=== PATIENT | male | born 1995 | race Caucasian/White ===

== ENCOUNTER 2018-06-28 16:59 | Emergency (ER) | payer BC, OTHER ==
[2018-06-28 17:03] VITALS: BP 137/84
[2018-06-28] MEDS ORDERED: OMEP-125 PO (17:06)
[2018-06-28] MEDS ORDERED: ACETAMINOPHEN 500 MG TAB PO ONE (17:10)
--- NOTE | 2018-06-28 17:16 | ER Report ---
History and Physical Time Seen By MD: 17:13 Hx. of Stated Complaint: FEVER ON AND OFF FOR A COUPLE WEEKS, BEEN 103 TODAY AT HOME. HAS ABDOMINAL AND TESTICULAR PAIN. (AMINAH CATRER MD) HPI/ROS CHIEF COMPLAINT: Fever testicular pain HISTORY OF PRESENT ILLNESS: Patient is a 23-year-old male says he's had intermittent fevers for the last 3-4 days MAXIMUM TEMPERATURE today is 103 is also describing increased urination as well as testicular pain and tenderness no penile discharge no pain with urination or defecation she took [id number] antipyretics with little benefit no neck pain or nuchal rigidity no headache no nausea vomiting no fever chills no additional complaints noted REVIEW OF SYSTEMS: Respiratory: No cough, no dyspnea. Cardiovascular: No chest pain, no palpitations. Gastrointestinal: No vomiting, no abdominal pain. Musculoskeletal: No back pain. Remainder of the 14 system rev: Yes (AMINAH CARTER MD) Allergies: Coded Allergies: No Known Drug Allergies (Unverified , 06/28/18) Home Meds Active Scripts Hydrocodone Bit/Acetaminophen (NORCO 5-325 TABLET) 1 Each Tablet, 1 EACH PO Q4H PRN for PAIN, #12 TAB Prov:NITIN PRESTON DO 06/28/18 Doxycycline Hyclate (DOXYCYCLINE HYCLATE) 100 Mg Tablet, 100 MG PO BID for infection, #20 Prov:NITIN PRESTON DO 06/28/18 Reported Medications Omeprazole (OMEPRAZOLE) 20 Mg Capsule.dr, 1 CAP PO BID, CAP 06/28/18 Reviewed Nurses Notes: Yes Old Medical Records Reviewed: Yes (AMINAH CARTER MD) Hx Substance Use Disorder: No Hx Alcohol Use: No (AMINAH CARTER MD) Constitutional (NITIN PRESTON DO) Physical Exam General Appearance: [The patient is alert, has no immediate need for airway protection and no current signs of toxicity.] [ ] Eyes: Pupils equal and round no injection. Respiratory: Chest is non tender, lungs are clear to auscultation. Cardiac: regular rate and rhythm [ ] Gastrointestinal: Abdomen is soft and non tender, no masses, bowel sounds normal. Musculoskeletal: Neck: Neck is supple and non tender. Extremities have full range of motion and are non tender. Skin: No rashes or lesions. Testicular examination shows some red warm and erythematous bilateral testicle pain with elevation negative friend sign no penile discharge no lymphadenopathy noted DIFFERENTIAL DIAGNOSIS: After history and physical exam differential diagnosis was considered for orchitis epididymitis testicular torsion UTI (AMINAH CARTER MD) Medical Decision Making Data Points Laboratory Hematology Test 06/28/18 17:11 06/28/18 17:17 Red Blood Count 5.60 M/uL (4.00-5.60) Mean Corpuscular Volume 83.0 fL (80.0-96.0) Mean Corpuscular Hemoglobin 28.9 pg (26.0-33.0) Mean Corpuscular Hemoglobin Concent 34.8 g/dL (32.0-36.0) Red Cell Distribution Width 12.9 % (11.5-14.5) Mean Platelet Volume 7.1 fL (7.2-11.1) Neutrophils (%) (Auto) 76.0 % (39.4-72.5) Lymphocytes (%) (Auto) 14.7 % (17.6-49.6) Monocytes (%) (Auto) 8.1 % (4.1-12.4) Eosinophils (%) (Auto) 0.8 % (0.4-6.7) Basophils (%) (Auto) 0.4 % (0.3-1.4) Nucleated RBC Relative Count (auto) 0.0 /100WBC Neutrophils # (Auto) 10.4 K/uL (2.0-7.4) Lymphocytes # (Auto) 2.0 K/uL (1.3-3.6) Monocytes # (Auto) 1.1 K/uL (0.3-1.0) Eosinophils # (Auto) 0.1 K/uL (0.0-0.5) Basophils # (Auto) 0.1 K/uL (0.0-0.1) Nucleated RBC Absolute Count (auto) 0.00 K/uL Sodium Level 141 mmol/L (137-145) Potassium Level 3.5 mmol/L (3.5-5.0) Chloride Level 102 mmol/L (98-107) Carbon Dioxide Level 25 mmol/L (22-30) Blood Urea Nitrogen 16 mg/dl (9-21) Creatinine 1.20 mg/dl (0.66-1.25) Glomerular Filtration Rate Calc > 60.0 Random Glucose 117 mg/dl (75-110) Calcium Level 10.0 mg/dl (8.4-10.2) Total Bilirubin 0.5 mg/dl (0.2-1.3) Aspartate Amino Transf (AST/SGOT) 23 U/L (0-35) Alanine Aminotransferase (ALT/SGPT) 40 U/L (0-56) Alkaline Phosphatase 78 U/L (0-126) Total Protein 8.8 g/dl (6.3-8.2) Albumin 4.8 g/dl (3.5-5.0) Urine Color Yellow Urine Clarity Clear Urine pH 5.0 pH (4.8-9.5) Urine Specific [place] 1.023 Urine Protein Negative mg/dL (NEGATIVE) Urine Glucose (UA) Negative mg/dL (NEGATIVE) Urine Ketones Negative mg/dL (NEGATIVE) Urine Blood Negative (NEGATIVE) Urine Nitrite Negative (NEGATIVE) Urine Bilirubin Negative (NEGATIVE) Urine Urobilinogen 2.0 mg/dL (0.2-1.9) Urine Leukocyte Esterase Negative (NEGATIVE) Urine RBC <1 /HPF (0-2/HPF) Urine WBC <1 /HPF (0-5/HPF) Urine Squamous Epithelial Cells None /LPF (</=FEW) Urine Bacteria Negative /HPF (NONE-FEW) Urine Mucus Few /HPF (NONE-FEW) Chlamydia trachomatis Amplified DNA Negative (Negative) Neisseria gonorrhoeae Amplified DNA Negative (Negative) Body Source Urine Chemistry Test 06/28/18 17:11 06/28/18 17:17 White Blood Count 13.7 k/uL (4.5-11.0) Red Blood Count 5.60 M/uL (4.00-5.60) Hemoglobin 16.2 g/dL (14.0-18.0) Hematocrit 46.5 % (42.0-52.0) Mean Corpuscular Volume 83.0 fL (80.0-96.0) Mean Corpuscular Hemoglobin 28.9 pg (26.0-33.0) Mean Corpuscular Hemoglobin Concent 34.8 g/dL (32.0-36.0) Red Cell Distribution Width 12.9 % (11.5-14.5) Platelet Count 376 K/uL (150-450) Mean Platelet Volume 7.1 fL (7.2-11.1) Neutrophils (%) (Auto) 76.0 % (39.4-72.5) Lymphocytes (%) (Auto) 14.7 % (17.6-49.6) Monocytes (%) (Auto) 8.1 % (4.1-12.4) Eosinophils (%) (Auto) 0.8 % (0.4-6.7) Basophils (%) (Auto) 0.4 % (0.3-1.4) Nucleated RBC Relative Count (auto) 0.0 /100WBC Neutrophils # (Auto) 10.4 K/uL (2.0-7.4) Lymphocytes # (Auto) 2.0 K/uL (1.3-3.6) Monocytes # (Auto) 1.1 K/uL (0.3-1.0) Eosinophils # (Auto) 0.1 K/uL (0.0-0.5) Basophils # (Auto) 0.1 K/uL (0.0-0.1) Nucleated RBC Absolute Count (auto) 0.00 K/uL Glomerular Filtration Rate Calc > 60.0 Calcium Level 10.0 mg/dl (8.4-10.2) Total Bilirubin 0.5 mg/dl (0.2-1.3) Aspartate Amino Transf (AST/SGOT) 23 U/L (0-35) Alanine Aminotransferase (ALT/SGPT) 40 U/L (0-56) Alkaline Phosphatase 78 U/L (0-126) Total Protein 8.8 g/dl (6.3-8.2) Albumin 4.8 g/dl (3.5-5.0) Urine Color Yellow Urine Clarity Clear Urine pH 5.0 pH (4.8-9.5) Urine Specific [place] 1.023 Urine Protein Negative mg/dL (NEGATIVE) Urine Glucose (UA) Negative mg/dL (NEGATIVE) Urine Ketones Negative mg/dL (NEGATIVE) Urine Blood Negative (NEGATIVE) Urine Nitrite Negative (NEGATIVE) Urine Bilirubin Negative (NEGATIVE) Urine Urobilinogen 2.0 mg/dL (0.2-1.9) Urine Leukocyte Esterase Negative (NEGATIVE) Urine RBC <1 /HPF (0-2/HPF) Urine WBC <1 /HPF (0-5/HPF) Urine Squamous Epithelial Cells None /LPF (</=FEW) Urine Bacteria Negative /HPF (NONE-FEW) Urine Mucus Few /HPF (NONE-FEW) Chlamydia trachomatis Amplified DNA Negative (Negative) Neisseria gonorrhoeae Amplified DNA Negative (Negative) Body Source Urine Urinalysis Test 06/28/18 17:17 Urine Color Yellow Urine Clarity Clear Urine pH 5.0 pH (4.8-9.5) Urine Specific [place] 1.023 Urine Protein Negative mg/dL (NEGATIVE) Urine Glucose (UA) Negative mg/dL (NEGATIVE) Urine Ketones Negative mg/dL (NEGATIVE) Urine Blood Negative (NEGATIVE) Urine Nitrite Negative (NEGATIVE) Urine Bilirubin Negative (NEGATIVE) Urine Urobilinogen 2.0 mg/dL (0.2-1.9) Urine Leukocyte Esterase Negative (NEGATIVE) Urine RBC <1 /HPF (0-2/HPF) Urine WBC <1 /HPF (0-5/HPF) Urine Squamous Epithelial Cells None /LPF (</=FEW) Urine Bacteria Negative /HPF (NONE-FEW) Urine Mucus Few /HPF (NONE-FEW) (NITIN PRESTON DO) EKG/Imaging Imaging Results: Ultrasound of the is jugular ultrasound was obtained was obtained. The results of the study are SCROTAL ULTRASOUND INDICATION: Testicular pain. Fever. COMPARISON: None available. FINDINGS: Right testicle measures 5.0 x 3.0 x 3.8 cm in cc, AP, and transverse dimensions respectively. There is normal arterial and venous blood flow. However diffusely increased. No right hydrocele. No varicocele identified. The right epididymal head measures 1.4 cm. Increased blood flow. No focal normality. Left testicle measures 5.5 x 2.5 x 4.4 cm in cc, AP, and transverse dimensions respectively. There is normal arterial and venous blood flow. However diffusely increased. No evidence of hydrocele. No varicocele identified. The left epididymal head measures 1.3 cm. Increased blood flow. No focal normality. The bilateral testicles appear diffusely heterogeneous. In echogenicity. IMPRESSION: 1. Both testes show diffuse heterogeneity without a focal abnormality. However there is diffusely increased blood flow seen bilaterally with increased blood flow in both epididymides without focal abnormality. This would be consistent bilateral epididymal orchitis. However suggest follow-up exam after medical therapy to reevaluate and to assess for any underlying abnormality not visualized or obscured by the blood flow and heterogeneity. The study was read by the radiologist. I viewed the images myself on the PACS system. (NITIN PRESTON DO) ED Course/Re-evaluation ED Course Care was assumed at shift change with diagnostic ultrasound pending to rule out testicular torsion. Patient clinically with epididymitis and orchitis. Ultrasound was unremarkable for torsion. Patient be treated with doxycycline and hydrocodone for pain. He is also advised to take ibuprofen [id number] milligrams 3 times daily. Follow-up with urology if unimproved in 3-5 days. Decision to Disposition Date: Jun 28, 2018 Decision to Disposition Time: 18:29 (NITIN PRESTON DO) Depart Departure Latest Vital Signs (NITIN PRESTON DO) Impression: Primary Impression: Orchitis and epididymitis Condition: Improved Disposition: HOME OR SELF-CARE New Scripts Hydrocodone Bit/Acetaminophen (NORCO 5-325 TABLET) 1 Each Tablet 1 EACH PO Q4H PRN for PAIN, #12 TAB Prov: NITIN PRESTON DO 06/28/18 Doxycycline Hyclate (DOXYCYCLINE HYCLATE) 100 Mg Tablet 100 MG PO BID for infection, #20 Prov: NITIN PRESTON DO 06/28/18 Patient Instructions: Epididymitis (ED), Orchitis (ED) Additional Instructions: Take ibuprofen 200 mg 3-4 tablets 3 times a day with food Perform warm sitz bath apply heating pad to your genital area Follow-up with urology in 10-14 days at the [facility] AMINAH CARTER MD Jun 28, 2018 17:16 NITIN PRESTON DO Jun 28, 2018 18:31
[2018-06-28 17:20] LABS: PLATELET COUNT, AUTOMATED 376 K/uL (150-450)
--- NOTE | 2018-06-28 18:25 | RADIOLOGY IMAGING REPORT ---
FACILITY: [facility] - [place] PATIENT NAME: Petar Grier : 1995 MR: [id number] V: [id number] EXAM DATE: ORDERING PHYSICIAN: AMINAH CARTER TECHNOLOGIST: Location: [facility] Patient: Petar Grier : 1995 Visit/Account:[id number] Date of Sevice: 06/28/2018 SCROTAL ULTRASOUND INDICATION: Testicular pain. Fever. COMPARISON: None available. FINDINGS: Right testicle measures 5.0 x 3.0 x 3.8 cm in cc, AP, and transverse dimensions respectively. There is normal arterial and venous blood flow. However diffusely increased. No right hydrocele. No varicocele identified. The right epididymal head measures 1.4 cm. Increased blood flow. No focal normality. Left testicle measures 5.5 x 2.5 x 4.4 cm in cc, AP, and transverse dimensions respectively. There is normal arterial and venous blood flow. However diffusely increased. No evidence of hydrocele. No varicocele identified. The left epididymal head measures 1.3 cm. Increased blood flow. No focal normality. The bilateral testicles appear diffusely heterogeneous. In echogenicity. IMPRESSION: 1. Both testes show diffuse heterogeneity without a focal abnormality. However there is diffusely i ncreased blood flow seen bilaterally with increased blood flow in both epididymides without focal abn ormality. This would be consistent bilateral epididymal orchitis. However suggest follow-up exam af ter medical therapy to reevaluate and to assess for any underlying abnormality not visualized or obsc ured by the blood flow and heterogeneity. I called report to Dr. Manzo at 06/28/2018 6:19 PM. Report Dictated By: Rocky Pires at 06/28/2018 6:13 PM Report E-Signed By: Rocky Pires at 06/28/2018 6:20 PM WSN:[id number]
[2018-06-28] MEDS ORDERED: DOXYCYCLINE HYCL 100 MG TAB PO ONE (18:30)
[2018-06-28] MEDS ORDERED: cefTRIAXone 1 GM VIAL IVP ONE (18:30)
[2018-06-28] MEDS ORDERED: HYDR-4309 PO (18:31)
[2018-06-28] MEDS ORDERED: DOXY-179 PO (18:31)
== END 2018-06-28 19:10 | disposition home or self-care (01) ==
LOC: ER 17:55
DX: N45.1 Epididymitis (principal); N45.2 Orchitis
CPT/HCPCS: 76870; 81001; 85025; 87491; 87591; 96374; 99284; J0696; 82040; 82247; 82310; 82374; 82435; 82565; 82947; 84075; 84132; 84155; 84295; 84450; 84460; 84520